=== PATIENT | female | born 1945 | race Caucasian/White ===

== ENCOUNTER → 2020-09-18 10:28 | Outpatient (CLI) | payer MEDICARE, SELFPAY ==
[2020-09-18 10:55] LABS: Basophils % 0.7 % (0.1-2.0); Eosinophils # 0.3 K/mm3 (0.0-0.4); Eosinophils % 5.5 % (0.1-12.0); Hemoglobin 13.2 g/dL (12.2-16.2); Lymphocytes # 1.7 K/mm3 (0.7-4.5); Lymphocytes % 28.9 % (10-50); Mean Corpuscular Hemoglobin 30.7 pg (27.0-31.2); Mean Corpuscular Volume 92.9 fl (81-99); Mean Platelet Volume 8.1 fl (7.4-10.4); Monocytes # 0.4 K/mm3 (0.1-1.0); Neutrophils # 3.5 K/mm3 (1.8-7.8); Neutrophils % 58.9 % (37.0-80.0); Platelet Count 191 K/mm3 (142-424); Red Blood Count 4.31 M/mm3 (4.20-5.40); Red Cell Distribution Width 14.2 % (11.5-17.5)
[2020-09-18 11:20] LABS: Chloride 106 mmol/L (98-107); Potassium 4.5 mmoL/L (3.5-5.1); Sodium 143 mmol/L (136-145)
[2020-09-18 11:22] LABS: Alanine Aminotransferase 27 U/L (12-78); Albumin Level 4.4 g/dl (3.5-5.0); Albumin/Globulin Ratio 1.5 (1.1-1.8); Alkaline Phosphatase 97 U/L (38-126); Anion Gap 10.5 mEq/L (5-15); Aspartate Amino Transferase 41 U/L (14-36); Bilirubin,Total 1.1 mg/dl (0.2-1.3); Carbon Dioxide 31 mmol/L (22.0-30.0); Total Protein,Serum 7.4 g/dl (6.3-8.2)
[2020-09-18 11:23] LABS: Calcium 9.4 mg/dl (8.4-10.2); Chol/HDL Ratio 3.8 (1-3.5); Cholesterol 165 mg/dl (140-200); Glucose 100 mg/dl (74-100); HDL Cholesterol 44 mg/dl (40-60); Triglycerides 231 mg/dl (30-150); VLDL Cholesterol 46 mg/dL (0-40)
[2020-09-18 11:27] LABS: Blood Urea Nitrogen 12 mg/dl (7-17); Estimated Glomerular Filt Rate 70 ml/min (>60); GFR (African American) 84 ML/MIN (>60)
== END ==
PROVIDERS: Visit Provider Internal Medicine
DX: I10 Essential (primary) hypertension (principal); E78.5 Hyperlipidemia, unspecified; M17.0 Bilateral primary osteoarthritis of knee
CPT/HCPCS: 36415; 80053; 80061; 85025

== ENCOUNTER → 2020-12-19 13:41 | Outpatient (CLI) | payer MEDICARE, SELFPAY ==
[2020-12-19 15:10] LABS: Bilirubin,Unconjugated 0.3 mg/dL (0.0-1.1)
[2020-12-19 15:11] LABS: Alanine Aminotransferase 20 U/L (12-78); Albumin Level 4.2 g/dl (3.5-5.0); Alkaline Phosphatase 88 U/L (38-126); Aspartate Amino Transferase 34 U/L (14-36); Bilirubin,Direct 0.6 mg/dl (0.0-0.4); Bilirubin,Indirect 0.3 mg/dL (0.0-0.9); Bilirubin,Total 0.9 mg/dl (0.2-1.3); Total Protein,Serum 7.1 g/dl (6.3-8.2)
== END ==
PROVIDERS: Visit Provider Internal Medicine
DX: I10 Essential (primary) hypertension (principal); D50.9 Iron deficiency anemia, unspecified; E78.5 Hyperlipidemia, unspecified; M17.0 Bilateral primary osteoarthritis of knee
CPT/HCPCS: 80076

== ENCOUNTER → 2021-05-14 10:48 | Outpatient (CLI) | payer MEDICARE, SELFPAY ==
[2021-05-14 11:30] LABS: Basophils % 0.8 % (0.1-2.0); Eosinophils # 0.2 K/mm3 (0.0-0.4); Eosinophils % 3.8 % (0.1-12.0); Hematocrit 40.4 % (37.0-47.0); Hemoglobin 13.5 g/dL (12.2-16.2); Lymphocytes # 1.8 K/mm3 (0.7-4.5); Lymphocytes % 31.7 % (10-50); Mean Corpuscular HGB Conc 33.5 g/dL (31.8-35.4); Mean Corpuscular Hemoglobin 31.3 pg (27.0-31.2); Mean Corpuscular Volume 93.2 fl (81-99); Mean Platelet Volume 8.9 fl (7.4-10.4); Monocytes # 0.3 K/mm3 (0.1-1.0); Monocytes % 5.8 % (1.7-9.3); Neutrophils # 3.3 K/mm3 (1.8-7.8); Neutrophils % 57.8 % (37.0-80.0); Platelet Count 197 K/mm3 (142-424); Red Blood Count 4.33 M/mm3 (4.20-5.40); Red Cell Distribution Width 14.4 % (11.5-17.5); White Blood Count 5.8 K/mm3 (4.8-10.8)
[2021-05-14 12:23] LABS: Alanine Aminotransferase 24 U/L (12-78); Albumin Level 4.1 g/dl (3.5-5.0); Albumin/Globulin Ratio 1.5 (1.1-1.8); Alkaline Phosphatase 83 U/L (38-126); Aspartate Amino Transferase 36 U/L (14-36); Bilirubin,Total 1.1 mg/dl (0.2-1.3); Blood Urea Nitrogen 16 mg/dl (7-17); Carbon Dioxide 27 mmol/L (22.0-30.0); Chloride 108 mmol/L (98-107); Chol/HDL Ratio 3.9 (1-3.5); Cholesterol 174 mg/dl (140-200); Estimated Glomerular Filt Rate 81 ml/min (>60); GFR (African American) 98 ML/MIN (>60); Globulin 2.7 g/dL (1.3-3.2); Glucose 96 mg/dl (74-100); HDL Cholesterol 45 mg/dl (40-60); Sodium 141 mmol/L (136-145); Total Protein,Serum 6.8 g/dl (6.3-8.2); Triglycerides 173 mg/dl (30-150); VLDL Cholesterol 35 mg/dL (0-40)
== END ==
PROVIDERS: Visit Provider Internal Medicine
DX: I10 Essential (primary) hypertension (principal); E78.5 Hyperlipidemia, unspecified; D50.9 Iron deficiency anemia, unspecified
CPT/HCPCS: 36415; 80053; 80061; 85025

== ENCOUNTER → 2022-01-21 15:50 | Outpatient (CLI) | payer MEDICARE, SELFPAY ==
--- NOTE | 2022-01-21 15:57 | XR_ITS ---
FINAL REPORT CLINICAL HISTORY: FALL Patient fell this morning. Pain in mid-section of left lower leg. FINDINGS: Right tibia fibula Two views were obtained. There is no acute fracture or dislocation. There are post arthroplasty changes of the knee. No soft tissue abnormality is identified. IMPRESSION: No acute process. Reviewed, Interpreted and Dictated by Efrain Overton MD Transcribed by Lilliana Yee Authenticated and [facility]
--- NOTE | 2022-01-21 15:57 | XR_ITS ---
FINAL REPORT CLINICAL HISTORY: FALL Patient fell this morning. FINDINGS: Left ankle Three views were obtained. There is no acute fracture or dislocation. The joint spaces appear normal. No soft tissue abnormality is identified. IMPRESSION: No acute process. Reviewed, Interpreted and Dictated by Efrain Overton MD Transcribed by Lilliana Yee Authenticated and [facility]
== END ==
PROVIDERS: PCP Internal Medicine; Visit Provider Internal Medicine
DX: M79.662 Pain in left lower leg (principal); M25.572 Pain in left ankle and joints of left foot; W19.XXXA Unspecified fall, initial encounter
CPT/HCPCS: 73590; 73610

== ENCOUNTER → 2022-09-29 11:30 | Outpatient (CLI) | payer MEDICARE, SELFPAY ==
[2022-09-29 12:05] LABS: Basophils % 0.4 % (0.1-2.0); Eosinophils # 0.3 K/mm3 (0.0-0.4); Eosinophils % 4.9 % (0.1-12.0); Hematocrit 40.6 % (37.0-47.0); Hemoglobin 13.5 g/dL (12.2-16.2); Lymphocytes # 2.2 K/mm3 (0.7-4.5); Lymphocytes % 36.9 % (10-50); Mean Corpuscular HGB Conc 33.1 g/dL (31.8-35.4); Mean Corpuscular Hemoglobin 30.6 pg (27.0-31.2); Mean Corpuscular Volume 92.3 fl (81-99); Mean Platelet Volume 8.8 fl (7.4-10.4); Monocytes # 0.4 K/mm3 (0.1-1.0); Monocytes % 5.8 % (1.7-9.3); Neutrophils # 3.2 K/mm3 (1.8-7.8); Neutrophils % 52.1 % (37.0-80.0); Platelet Count 201 K/mm3 (142-424); Red Blood Count 4.41 M/mm3 (4.20-5.40); White Blood Count 6.1 K/mm3 (4.8-10.8)
[2022-09-29 12:22] LABS: Alanine Aminotransferase 23 U/L (12-78); Albumin Level 4.3 g/dl (3.5-5.0); Albumin/Globulin Ratio 1.4 (1.1-1.8); Alkaline Phosphatase 92 U/L (38-126); Anion Gap 13.3 mEq/L (5-15); Aspartate Amino Transferase 32 U/L (14-36); Bilirubin,Total 0.9 mg/dl (0.2-1.3); Blood Urea Nitrogen 14 mg/dl (7-17); Calcium 9.2 mg/dl (8.4-10.2); Carbon Dioxide 27 mmol/L (22.0-30.0); Chloride 107 mmol/L (98-107); Chol/HDL Ratio 3.6 (1-3.5); Cholesterol 158 mg/dl (140-200); Estimated Glomerular Filt Rate 81 ml/min (>60); GFR (African American) 98 ML/MIN (>60); Glucose 96 mg/dl (74-100); HDL Cholesterol 44 mg/dl (40-60); Potassium 4.3 mmoL/L (3.5-5.1); Sodium 143 mmol/L (136-145); Total Protein,Serum 7.3 g/dl (6.3-8.2); Triglycerides 164 mg/dl (30-150); VLDL Cholesterol 33 mg/dL (0-40)
[2022-09-29 12:33] LABS: Direct LDL Cholesterol 76.72 mg/dL (100-129)
== END ==
PROVIDERS: PCP Internal Medicine; Visit Provider Internal Medicine
DX: I10 Essential (primary) hypertension (principal); D50.9 Iron deficiency anemia, unspecified; M17.0 Bilateral primary osteoarthritis of knee
CPT/HCPCS: 36415; 80053; 80061; 85025

== ENCOUNTER 2023-03-31 09:51 | Outpatient (CLI) | payer MEDICARE, SELFPAY ==
[2023-03-31 11:15] LABS: Alanine Aminotransferase 24 U/L (12-78); Albumin Level 3.9 g/dl (3.5-5.0); Albumin/Globulin Ratio 1.6 (1.1-1.8); Alkaline Phosphatase 77 U/L (38-126); Aspartate Amino Transferase 34 U/L (14-36); Bilirubin,Total 0.8 mg/dl (0.2-1.3); Blood Urea Nitrogen 15 mg/dl (7-17); Calcium 8.8 mg/dl (8.4-10.2); Carbon Dioxide 28 mmol/L (22.0-30.0); Chloride 108 mmol/L (98-107); Chol/HDL Ratio 4.2 (1-3.5); Cholesterol 164 mg/dl (140-200); Estimated Glomerular Filt Rate 69 ml/min (>60); GFR (African American) 84 ML/MIN (>60); Globulin 2.5 g/dL (1.3-3.2); Glucose 97 mg/dl (74-100); HDL Cholesterol 39 mg/dl (40-60); Sodium 141 mmol/L (136-145); Total Protein,Serum 6.4 g/dl (6.3-8.2); Triglycerides 202 mg/dl (30-150); VLDL Cholesterol 40 mg/dL (0-40)
== END 2023-03-31 23:59 ==
LOC: LAB 09:52
PROVIDERS: PCP Internal Medicine; Visit Provider Internal Medicine
DX: I10 Essential (primary) hypertension (principal); E78.5 Hyperlipidemia, unspecified; M15.0 Primary generalized (osteo)arthritis
CPT/HCPCS: 36415; 80053; 80061

== ENCOUNTER 2023-09-01 17:46 | Emergency (ER) | payer MEDICARE, SELFPAY ==
[2023-09-01] VITALS (26 sets, daily range): BP systolic 126–181; BP diastolic 59–91; PULSE 65–113; RESP 9–22; TEMP 36.6–36.7; O2SAT 95–99; BMI 34.5
--- NOTE | 2023-09-01 17:56 | HMH.EDGENADL ---
Discharge Plan Disposition Patient Disposition: Home, Self-Care Condition: Good Prescriptions Prescriptions: New oxycodone 5 mg tablet 5 mg PO Q8H PRN (Reason: pain (scale score 7-10)) Qty: 6 0RF Referrals Follow up/Referrals: Oli Pereira MD [Primary Care Provider] - See instructions Azam Manley DO [Staff Physician] - See instructions (Left humerus fracture, shoulder dislocation status post reduction) Activity Restrictions/Add. Instructions Additional Instructions/Restrictions: Please call in the morning to make your appointment with Dr. Manley. Return to ER for any worsening signs or symptoms as needed. Please take Tylenol and ibuprofen every 6 hours as needed with food and if your symptoms are still severe and then take the oxycodone as as prescribed. Clinical Impressions Clinical Impression: Dislocation of shoulder region Qualifiers: Encounter type: initial encounter Laterality: left Qualified Code(s): S43.005A - Unspecified dislocation of left shoulder joint, initial encounter Discharge ED Provider: Pedrito Montes De Oca General Adult HPI <TOR Sanchez - Last Filed: 09/01/23 21:12> General Chief complaint: Extremity Injury, Upper Stated complaint: AO 09-01-23 fell ,left shoulder hurting Time Seen by Provider: 09/01/23 17:50 History of Present Illness HPI narrative: Patient presents for evaluation of the left upper extremity. Patient tripped over a garden hose fell landing on her left shoulder. She has been unable to move it since. She reports no numbness or tingling in her hand no absence of sensation no chest pain no fever no chills hemoptysis hematochezia melena nausea vomiting diarrhea loss of consciousness head injury or any other injury or complaint Related Data Previous Rx's Medication Instructions Recorded oxycodone 5 mg tablet 5 mg PO Q8H PRN pain (scale score 09/01/23 7-10) #6 tabs Allergies Allergy/AdvReac Type Severity Reaction Status Date / Time No Known Allergies Allergy Unverified 02/10/17 14:36 PFSH <TOR Sanchez - Last Filed: 09/01/23 21:12> PFS Disclaimer: The information contained in this section may have been updated after the patient was seen, as this information can be updated by other users. Social History (Updated 09/01/23 @ 21:12 by TOR Sanchez) Smoking Status: Never smoker alcohol intake: never current occupational status: retired Travel in the last 8 weeks: None <TOR Sanchez - Last Filed: 09/01/23 21:12> ROS Obtained: Yes Systems reviewed as appropriate & no additional complaints except as documented Physical Exam <TOR Sanchez - Last Filed: 09/01/23 21:12> General General appearance: alert and in no apparent distress Head Head exam: atraumatic Eye Eye exam: Present normal appearance and EOMI ENT ENT exam: Present normal exam and normal oropharynx Neck Neck exam: Present normal inspection, full ROM and lymphadenopathy; Absent tenderness Chest Chest inspection: Present normal inspection and symmetric chest wall rise; Absent tenderness Respiratory Respiratory exam: Present normal lung sounds bilaterally Cardiovascular Cardiovascular exam: Present regular rate and normal rhythm Expanded Upper Extremity Exam Left: Shoulder exam: Present deformity and dislocation; Absent normal inspection or full ROM Back Exam Back exam: Present normal inspection and full ROM; Absent tenderness Neurological Exam Neurological exam: Present alert and oriented X3 Psychiatric Psychiatric exam: Present normal affect and normal mood Skin Skin exam: Present warm, dry and normal color Medical Decision Making <TOR Sanchez - Last Filed: 09/01/23 21:12> Adolfo Inquiry Pt receiving controlled substance: No Vital Signs: 09/01/23 17:48 09/01/23 20:17 09/01/23 20:56 Temperature 97.8 F 98 F 98.0 F Temperature Source Oral Oral Oral Pulse Rate [Right Radial] 66 98 H 84 Respiratory Rate 20 11 L 18 Blood Pressure [Right Arm] 126/59 L 180/85 H 133/75 Blood Pressure Mean [Right Arm] 81 116 94 02 Sat by Pulse Oximetry 95 99 98 Oxygen Delivery Method Room Air Nasal Cannula Nasal Cannula Oxygen Flow Rate (LPM) 6 2 09/01/23 21:06 Temperature 98 F Temperature Source Oral Pulse Rate [Right Radial] 104 H Respiratory Rate 22 Blood Pressure [Right Arm] 160/73 H Blood Pressure Mean [Right Arm] 102 02 Sat by Pulse Oximetry 97 Oxygen Delivery Method Nasal Cannula Oxygen Flow Rate (LPM) 2 Lab Data Lab results reviewed: Yes I reviewed the patient's lab results. Lab Results 09/01/23 18:20: WBC 6.2, RBC 4.00 L, Hgb 12.9, Hct 37.6, MCV 93.8, MCH 32.3 H, MCHC 34.4, RDW 14.6, Plt Count 178, MPV 8.6, Neut % (Auto) 53.9, Lymph % (Auto) 38.2, [place] % (Auto) 5.9, Eos % (Auto) 1.8, Baso % (Auto) 0.2, Neut # (Auto) 3.3, Lymph # (Auto) 2.4, [place] # (Auto) 0.4, Eos # (Auto) 0.1, Baso # (Auto) 0.0, Sodium 142, Potassium 3.2 L, Chloride 110 H, Carbon Dioxide 23, Anion Gap 12.2, BUN 19 H, Creatinine 0.80, Estimated Creat Clear 64, Estimated GFR 69, Est GFR ( Amer) 84, Glucose 111 H, Calcium 9.1 09/01/23 18:20 09/01/23 18:20 Orders (Tests/Meds): ED MEDICATIONS Discontinued Medications Generic Name Dose Route Start Last Admin Trade Name Freq PRN Reason Stop Dose Admin Fentanyl Citrate 50 mcg 09/01/23 19:59 09/01/23 21:20 Fentanyl 250mcg/5ml Vial IV 09/01/23 20:00 Not Given ONCE ONE Fentanyl Citrate 50 mcg 09/01/23 20:52 09/01/23 20:10 Fentanyl 100mcg/2ml Vial IV 09/01/23 20:53 50 mcg ONCE ONE Administration Ketamine HCl 150 mg 09/01/23 20:07 09/01/23 20:53 Ketamine 50mg/1ml Syringe IV 09/01/23 20:08 100 mg ONCE ONE Administration Morphine Sulfate 4 mg 09/01/23 18:26 09/01/23 18:31 Morphine 4mg/Ml Syringe IV 09/01/23 18:27 4 mg ONCE ONE Administration Ondansetron HCl 4 mg 09/01/23 18:26 09/01/23 18:31 Ondansetron 4mg/2ml Vial IV 09/01/23 18:27 4 mg ONCE ONE Administration Potassium Chloride 40 meq 09/01/23 19:40 09/01/23 19:45 Potassium Chloride 20meq Tab PO 09/01/23 19:41 40 meq ONCE ONE Administration Propofol 100 mg 09/01/23 20:08 09/01/23 20:54 Propofol 10mg/Ml 20ml Vial IV 09/01/23 20:09 30 mg ONCE ONE Administration ORDERS Category Date Time Status Forearm XR left 2 views [XR forearm LT 2V] Stat Exams 09/01/23 20:26 Completed Humerus XR left [XR humerus LT] Stat Exams 09/01/23 19:41 Completed XR shoulder LT 1V Stat Exams 09/01/23 19:41 Taken XR shoulder LT min 2V Stat Exams 09/01/23 17:59 Completed BMP [Basic Metabolic Panel] Stat Lab 09/01/23 18:20 Completed CBC w/Auto Diff [Complete Blood Count Auto Diff] Stat Lab 09/01/23 18:20 Completed Medical Decision Narrative: In summary patient is a 78-year-old female who presents to the emergency department for evaluation of left shoulder injury. Patient is hemodynamically stable upon arrival, febrile. Zickel exam is remarkable for obvious dislocation of the left shoulder. Patient is neurovascular intact distally. She has positive radial and ulnar pulses. No palpable bony deformity.. Differential diagnosis includes dislocation versus fracture dislocation versus ligamentous injury versus vascular compromise etc. Initial workup will be conducted with plain film x-ray hematologic labs EKG. Initial interventions include morphine and Zofran. Initial workup reviewed by me my informal interpretation of her plain film x-ray shows a dislocation of the shoulder but also a what appears to be a lucency through the surgical neck that was confirmed by radiology.. Upon repeat evaluation Dr. Montes De Oca and I under conscious sedation were able to reduce the shoulder. Given this patient is returned to her baseline of normal functioning after conscious sedation and is appropriate for discharge at this time <Pedrito Montes De Oca MD - Last Filed: 09/01/23 21:31> Vital Signs: 09/01/23 17:48 09/01/23 20:17 09/01/23 20:56 Temperature 97.8 F 98 F 98.0 F Temperature Source Oral Oral Oral Pulse Rate [Right Radial] 66 98 H 84 Respiratory Rate 20 11 L 18 Blood Pressure [Right Arm] 126/59 L 180/85 H 133/75 Blood Pressure Mean [Right Arm] 81 116 94 02 Sat by Pulse Oximetry 95 99 98 Oxygen Delivery Method Room Air Nasal Cannula Nasal Cannula Oxygen Flow Rate (LPM) 6 2 09/01/23 21:06 Temperature 98 F Temperature Source Oral Pulse Rate [Right Radial] 104 H Respiratory Rate 22 Blood Pressure [Right Arm] 160/73 H Blood Pressure Mean [Right Arm] 102 02 Sat by Pulse Oximetry 97 Oxygen Delivery Method Nasal Cannula Oxygen Flow Rate (LPM) 2 Lab Data Lab Results 09/01/23 18:20: WBC 6.2, RBC 4.00 L, Hgb 12.9, Hct 37.6, MCV 93.8, MCH 32.3 H, MCHC 34.4, RDW 14.6, Plt Count 178, MPV 8.6, Neut % (Auto) 53.9, Lymph % (Auto) 38.2, [place] % (Auto) 5.9, Eos % (Auto) 1.8, Baso % (Auto) 0.2, Neut # (Auto) 3.3, Lymph # (Auto) 2.4, [place] # (Auto) 0.4, Eos # (Auto) 0.1, Baso # (Auto) 0.0, Sodium 142, Potassium 3.2 L, Chloride 110 H, Carbon Dioxide 23, Anion Gap 12.2, BUN 19 H, Creatinine 0.80, Estimated Creat Clear 64, Estimated GFR 69, Est GFR ( Amer) 84, Glucose 111 H, Calcium 9.1 Orders (Tests/Meds): ED MEDICATIONS Discontinued Medications Generic Name Dose Route Start Last Admin Trade Name Yuliana PRN Reason Stop Dose Admin Fentanyl Citrate 50 mcg 09/01/23 19:59 09/01/23 21:20 Fentanyl 250mcg/5ml Vial IV 09/01/23 20:00 Not Given ONCE ONE Fentanyl Citrate 50 mcg 09/01/23 20:52 09/01/23 20:10 Fentanyl 100mcg/2ml Vial IV 09/01/23 20:53 50 mcg ONCE ONE Administration Ketamine HCl 150 mg 09/01/23 20:07 09/01/23 20:53 Ketamine 50mg/1ml Syringe IV 09/01/23 20:08 100 mg ONCE ONE Administration Morphine Sulfate 4 mg 09/01/23 18:26 09/01/23 18:31 Morphine 4mg/Ml Syringe IV 09/01/23 18:27 4 mg ONCE ONE Administration Ondansetron HCl 4 mg 09/01/23 18:26 09/01/23 18:31 Ondansetron 4mg/2ml Vial IV 09/01/23 18:27 4 mg ONCE ONE Administration Potassium Chloride 40 meq 09/01/23 19:40 09/01/23 19:45 Potassium Chloride 20meq Tab PO 09/01/23 19:41 40 meq ONCE ONE Administration Propofol 100 mg 09/01/23 20:08 09/01/23 20:54 Propofol 10mg/Ml 20ml Vial IV 09/01/23 20:09 30 mg ONCE ONE Administration ORDERS Category Date Time Status Forearm XR left 2 views [XR forearm LT 2V] Stat Exams 09/01/23 20:26 Completed Humerus XR left [XR humerus LT] Stat Exams 09/01/23 19:41 Completed XR shoulder LT 1V Stat Exams 09/01/23 19:41 Taken XR shoulder LT min 2V Stat Exams 09/01/23 17:59 Completed BMP [Basic Metabolic Panel] Stat Lab 09/01/23 18:20 Completed CBC w/Auto Diff [Complete Blood Count Auto Diff] Stat Lab 09/01/23 18:20 Completed ECG Data Tracing #1: Independently interpreted by me rate of 75, rhythm is regular, axis is normal, no ST elevation in anatomical contiguous leads, QTc 420. Medical Decision Narrative: In summary patient is a 78-year-old female who presents to the emergency department for evaluation of left shoulder injury. Patient is hemodynamically stable upon arrival, febrile. Zickel exam is remarkable for obvious dislocation of the left shoulder. Patient is neurovascular intact distally. She has positive radial and ulnar pulses. No palpable bony deformity.. Differential diagnosis includes dislocation versus fracture dislocation versus ligamentous injury versus vascular compromise etc. Initial workup will be conducted with plain film x-ray hematologic labs EKG. Initial interventions include morphine and Zofran. Initial workup reviewed by me my informal interpretation of her plain film x-ray shows a dislocation of the shoulder but also a what appears to be a lucency through the surgical neck that was confirmed by radiology.. Upon repeat evaluation Dr. Montes De Oca and I under conscious sedation were able to reduce the shoulder. Given this patient is returned to her baseline of normal functioning after conscious sedation and is appropriate for discharge at this time. I was consulted by the ELDA, and we discussed the complexity of the problems being addressed. I approved the treatment and management plan for this patient's care in the emergency department, thus performing a substantive portion of the medical decision making. Procedure: Procedure performed was left shoulder dislocation reduction, procedure performed by Pedrito Montes De Oca and Conor Woods. Using axial traction with countertraction assisted by ketamine and propofol (please see procedural sedation note) after 3 attempts successful reduction was achieved. Patient tolerated procedure well. There were no immediate complications. Upon repeat evaluation patient had some pain will be given oral oxycodone. Fortunately repeat x-rays have no concern for suspicious fracture of surgical neck and have successful reduction. Patient was watched for 30 minutes and then was discharged stable condition with prescription for oxycodone will follow-up with Dr. Manley. Pedrito Montes De Oca MD Procedures <Pedrito Montes De Oca MD - Last Filed: 09/01/23 21:31> Procedural Sedation A heart and lung assessment was performed on this patient at: 20:08 Mallampati Score:: Class II ASA Class: II Preparation: color television console monitor applied, pulse oximeter, capnometry used, supplemental O2 applied, suction/airway equipment at bedside and IV secured Ketamine: IV Ketamine dose (mg): 100 IV Propofol dose (mg): 30 Patient Tolerated Procedure: well Complications: Respiratory Depression-Repositioning Required Interventions: airway repositioned Additional Comments: Start time 2019, stop time 2027 Critical Care <TOR Sanchez - Last Filed: 09/01/23 21:12> Critical Care Time Critical Care Time: No
--- NOTE | 2023-09-01 17:59 | XR_ITS ---
PROCEDURE INFORMATION: Exam: XR Left Shoulder Exam date and time: 09/01/2023 6:18 PM Age: 78 years old Clinical indication: Injury or trauma; Fall; Other: Pain; Additional info: Fall shoulder pain TECHNIQUE: Imaging protocol: Radiologic exam of the left shoulder. Views: 2 or more views. COMPARISON: No relevant prior studies available. FINDINGS: Bones/joints: Anterior dislocation of the humeral head with respect to the bony glenoid. Findings suspicious for fracture of the surgical neck. Soft tissues: Normal. IMPRESSION: 1. Anterior dislocation of the humeral head with respect to the bony glenoid. 2. Findings suspicious for fracture of the surgical neck. 3. Recommend follow-up with computerized tomography.
[2023-09-01] MEDS: MORPHINE 4MG/ML SYRINGE 4 MG IV (18:31)
[2023-09-01] MEDS: ONDANSETRON 4MG/2ML VIAL 4 MG IV (18:31)
[2023-09-01 18:50] LABS: Chloride 110 mmol/L (98-107)
[2023-09-01 18:51] LABS: Potassium 3.2 mmoL/L (3.5-5.1); Sodium 142 mmol/L (136-145)
[2023-09-01 18:52] LABS: Basophils % 0.2 % (0.1-2.0); Eosinophils # 0.1 K/mm3 (0.0-0.4); Eosinophils % 1.8 % (0.1-12.0); Hematocrit 37.6 % (37.0-47.0); Hemoglobin 12.9 g/dL (12.2-16.2); Lymphocytes # 2.4 K/mm3 (0.7-4.5); Lymphocytes % 38.2 % (10-50); Mean Corpuscular HGB Conc 34.4 g/dL (31.8-35.4); Mean Corpuscular Hemoglobin 32.3 pg (27.0-31.2); Mean Corpuscular Volume 93.8 fl (81-99); Mean Platelet Volume 8.6 fl (7.4-10.4); Monocytes # 0.4 K/mm3 (0.1-1.0); Monocytes % 5.9 % (1.7-9.3); Neutrophils # 3.3 K/mm3 (1.8-7.8); Neutrophils % 53.9 % (37.0-80.0); Platelet Count 178 K/mm3 (142-424); Red Cell Distribution Width 14.6 % (11.5-17.5); White Blood Count 6.2 K/mm3 (4.8-10.8)
[2023-09-01 18:53] LABS: Blood Urea Nitrogen 19 mg/dl (7-17); Creatinine Clearance Estimated 64 mL/min (50-200); Estimated Glomerular Filt Rate 69 ml/min (>60); GFR (African American) 84 ML/MIN (>60)
[2023-09-01 18:54] LABS: Anion Gap 12.2 mEq/L (5-15); Calcium 9.1 mg/dl (8.4-10.2); Carbon Dioxide 23 mmol/L (22.0-30.0); Glucose 111 mg/dl (74-100)
--- NOTE | 2023-09-01 18:59 | ECG_ITS ---
APPROVED REPORT Exam: Resting ECG HR:75 bpm ECG Measurements Heart Rate [address] 173 P 67 QRSd 85 QRS 29 QT 391 T 17 QTc 420 Conclusion SINUS RHYTHM WITH OCCASIONAL ECTOPIC PREMATURE COMPLEXES LOW QRS VOLTAGE IN PRECORDIAL LEADS [QRS DEFLECTION < 1.0 mV IN CHEST LEADS] NONSPECIFIC T-WAVE ABNORMALITY BORDERLINE ECG Isolated T wave inversion in lead III and abnormal ST/T wave in aVF, does not meet criteria, no reciprocal changes, no STEMI Electronically signed by : NAVEEN PECK, 09/02/2023 08:02:34
--- NOTE | 2023-09-01 19:41 | XR_ITS ---
PROCEDURE INFORMATION: Exam: XR Left Humerus Exam date and time: 09/01/2023 8:13 PM Age: 78 years old Clinical indication: Injury or trauma; Fall; Other: Post reduction TECHNIQUE: Imaging protocol: Radiologic exam of the left humerus. Views: 2 or more views. COMPARISON: CR XR SHOULDER LT MIN 2V 09/01/2023 6:18 PM FINDINGS: Bones/joints: Normal. Soft tissues: Normal. IMPRESSION: No acute findings.
[2023-09-01] MEDS: POTASSIUM CHLORIDE 20MEQ TAB 40 MEQ PO (19:45)
--- NOTE | 2023-09-01 20:01 | PC.NURSE ---
Dr. Manley pageashanti
[2023-09-01] MEDS: FENTANYL 100MCG/2ML VIAL 50 MCG IV (20:10)
--- NOTE | 2023-09-01 20:26 | XR_ITS ---
PROCEDURE INFORMATION: Exam: XR Left Forearm Exam date and time: 09/01/2023 8:23 PM Age: 78 years old Clinical indication: Injury or trauma; Fall TECHNIQUE: Imaging protocol: Radiologic exam of the left forearm. Views: 2 views. COMPARISON: No relevant prior studies available. FINDINGS: Bones/joints: Normal. Soft tissues: Normal. IMPRESSION: No acute findings.
[2023-09-01] MEDS: KETAMINE 50MG/1ML SYRINGE 150 MG IV (20:53)
[2023-09-01] MEDS: PROPOFOL 10MG/ML 20ML VIAL 100 MG IV (20:54)
--- NOTE | 2023-09-01 21:08 | PC.NURSE ---
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
[2023-09-01] MEDS: OXYCODONE 5MG IMMEDIATE RELEASE TABLET 5 MG PO (21:37)
== END 2023-09-01 22:25 | disposition home or self-care (01) ==
PROVIDERS: Physician Assistant; Emergency Provider Emergency Medicine; PCP Internal Medicine
DX: S43.005A Unspecified dislocation of left shoulder joint, initial encounter (principal); M25.512 Pain in left shoulder; E87.6 Hypokalemia; W01.10XA Fall on same level from slipping, tripping and stumbling with subsequent striking against unspecified object, initial encounter
CPT/HCPCS: 23650; 99152; 73020; 73030; 73060; 73090; 80048; 85025; 93005; 96374; 96375; 96376; 99285; J2270; J2405; J3010

== ENCOUNTER 2023-10-06 14:50 | Outpatient (CLI) | payer MEDICARE, SELFPAY ==
[2023-10-06 13:24] LABS: Basophils % 0.7 % (0.1-2.0); Eosinophils # 0.3 K/mm3 (0.0-0.4); Eosinophils % 4.1 % (0.1-12.0); Hematocrit 43.3 % (37.0-47.0); Hemoglobin 14.1 g/dL (12.2-16.2); Lymphocytes # 1.8 K/mm3 (0.7-4.5); Lymphocytes % 29.1 % (10-50); Mean Corpuscular HGB Conc 32.5 g/dL (31.8-35.4); Mean Corpuscular Hemoglobin 31.3 pg (27.0-31.2); Mean Corpuscular Volume 96.4 fl (81-99); Monocytes # 0.5 K/mm3 (0.1-1.0); Monocytes % 8.4 % (1.7-9.3); Neutrophils # 3.6 K/mm3 (1.8-7.8); Neutrophils % 57.6 % (37.0-80.0); Platelet Count 197 K/mm3 (142-424); Red Blood Count 4.49 M/mm3 (4.20-5.40); Red Cell Distribution Width 14.7 % (11.5-17.5); White Blood Count 6.2 K/mm3 (4.8-10.8)
[2023-10-06 13:58] LABS: Alanine Aminotransferase 20 U/L (12-78); Albumin Level 3.9 g/dl (3.5-5.0); Albumin/Globulin Ratio 1.3 (1.1-1.8); Alkaline Phosphatase 84 U/L (38-126); Aspartate Amino Transferase 31 U/L (14-36); Bilirubin,Total 1.1 mg/dl (0.2-1.3); Blood Urea Nitrogen 18 mg/dl (7-17); Calcium 9.2 mg/dl (8.4-10.2); Carbon Dioxide 28 mmol/L (22.0-30.0); Chloride 106 mmol/L (98-107); Chol/HDL Ratio 4.3 (1-3.5); Cholesterol 176 mg/dl (140-200); Estimated Glomerular Filt Rate 69 ml/min (>60); GFR (African American) 84 ML/MIN (>60); Glucose 85 mg/dl (74-100); HDL Cholesterol 41 mg/dl (40-60); Sodium 139 mmol/L (136-145); Total Protein,Serum 6.9 g/dl (6.3-8.2); Triglycerides 238 mg/dl (30-150); VLDL Cholesterol 48 mg/dL (0-40)
[2023-10-06 14:09] LABS: Direct LDL Cholesterol 76.84 mg/dL (100-129)
== END 2023-10-06 23:59 | disposition home or self-care (01) ==
LOC: LAB.DROPOF 14:50
PROVIDERS: PCP Internal Medicine; Visit Provider Internal Medicine
DX: I10 Essential (primary) hypertension (principal); E78.5 Hyperlipidemia, unspecified
CPT/HCPCS: 80053; 80061; 85025

== ENCOUNTER 2023-11-12 11:16 | Outpatient (CLI) | payer MEDICARE, SELFPAY ==
[2023-11-12 10:22] LABS: Reticulocyte % (Auto) 1.7 % (0.9-3.2)
[2023-11-12 11:10] LABS: Bilirubin,Direct 0.2 mg/dl (0.0-0.4); Bilirubin,Indirect 0.8 mg/dL (0.0-0.9); Bilirubin,Unconjugated 0.9 mg/dL (0.0-1.1)
== END 2023-11-12 23:59 | disposition home or self-care (01) ==
LOC: LAB.DROPOF 11:16
PROVIDERS: PCP Internal Medicine; Visit Provider Internal Medicine
DX: R17 Unspecified jaundice (principal)
CPT/HCPCS: 82247; 82248; 85044

== ENCOUNTER 2024-04-07 13:52 | Outpatient (CLI) | payer MEDICARE, SELFPAY ==
[2024-04-07 14:22] LABS: Albumin Level 4.3 g/dl (3.5-5.0); Chloride 106 mmol/L (98-107); Potassium 4.1 mmoL/L (3.5-5.1); Sodium 141 mmol/L (136-145)
[2024-04-07 14:25] LABS: Alanine Aminotransferase 26 U/L (12-78); Albumin/Globulin Ratio 1.7 (1.1-1.8); Alkaline Phosphatase 68 U/L (38-126); Anion Gap 12.1 mEq/L (5-15); Aspartate Amino Transferase 34 U/L (14-36); Bilirubin,Total 0.7 mg/dl (0.2-1.3); Blood Urea Nitrogen 17 mg/dl (7-17); Carbon Dioxide 27 mmol/L (22.0-30.0); Cholesterol 158 mg/dl (140-200); Estimated Glomerular Filt Rate 81 ml/min (>60); GFR (African American) 97 ML/MIN (>60); Globulin 2.5 g/dL (1.3-3.2); Glucose 83 mg/dl (74-100); Total Protein,Serum 6.8 g/dl (6.3-8.2); Triglycerides 179 mg/dl (30-150); VLDL Cholesterol 36 mg/dL (0-40)
[2024-04-07 14:26] LABS: Chol/HDL Ratio 3.9 (1-3.5); HDL Cholesterol 41 mg/dl (40-60)
== END 2024-04-07 23:59 | disposition home or self-care (01) ==
LOC: LAB.DROPOF 13:52
PROVIDERS: PCP Internal Medicine; Visit Provider Internal Medicine
DX: E78.5 Hyperlipidemia, unspecified (principal); I10 Essential (primary) hypertension
CPT/HCPCS: 80053; 80061

== ENCOUNTER 2025-01-23 16:35 | Outpatient (CLI) | payer MEDICARE, SELFPAY ==
[2025-01-23 16:15] LABS: Hematocrit 42.5 % (37.0-47.0); Hemoglobin 13.9 g/dL (12.2-16.2); Immature Granulocytes % 0.3 %; Mean Corpuscular HGB Conc 32.7 g/dL (31.8-35.4); Mean Corpuscular Hemoglobin 30.8 pg (27.0-31.2); Mean Corpuscular Volume 94.0 fl (81-99); Nucleated Red Blood Cells % 0 %; Platelet Count 212 K/mm3 (142-424); Red Blood Count 4.52 M/mm3 (4.20-5.40); Red Cell Distribution Width-SD 47.4 fL; White Blood Count 6.9 K/mm3 (4.8-10.8)
[2025-01-23 16:36] LABS: Albumin Level 4.3 g/dl (3.5-5.0); Chloride 105 mmol/L (98-107)
[2025-01-23 16:37] LABS: Potassium 3.6 mmoL/L (3.5-5.1); Sodium 146 mmol/L (136-145)
--- OUTSIDE RECORDS SUMMARY | 2025-01-23 16:37 | XMS_ITS | Clinical Summary ---
[facility] Address [address] [place] [address] Care Team Providers Care [employer] Rep Name Role Phone Provider, No Known Primary Care Provider [phone] Social History Tobacco Use Types Packs/Day Years Used Date Smoking Tobacco: Never Assessed Abuse Screen Answer Date Recorded Unsafe at Home or Work/School Not on file Feels Threatened by Someone? Not on file 10/2022 Does Anyone Keep You from Co ntacting Others or Doint Things Outside the Home? Not on file 12/01/2022 Physical Sign of Abuse Present Not on file 1 Housing Stability Answer Date Recorded Current Living Arrangements Not on file 10/2022 Potentially Unsafe Housing Conditions Not on paige e 12/01/2022 Family and Community Support Answer Misael e Recorded Help with Day-to-Day Activities Not on file 12/01/2022 Lonely or Isolated Not on file 12/01/2022 Employment Answer Date Recorded Do you want help finding or keeping work or a rolanda b? Not on file 12/01/2022 Disabilities Answer Date Recorded Concentrating, Remembering, or Making Decisions Difficulty Not on file 12/01/2022 Doing Errands Independently Difficulty Not on fi le 12/01/2022 Education Answer Date Recorded Help with school or training? Not on file Preferred Language Not on file 12/01/2022 Comments Unknown Sex and Gender Information Value Date Recorded Sex Assigned at Not on file Legal Sex Female 1:12 PM EDT Gender Identity Not on file Sexual Orientation Not on file Plan of Treatment Health Maintenance Due Date Last Done Comments ANNUAL PHYSICAL 1945 DXA SCAN 1945 TDAP/TD VACCINES (1 - Tdap) 02/02/1963 Pneumococcal Vaccine 50+ (1 of 1 - PCV) 02/02/1994 ZOSTER VACCINE (1 of 2) 02/02/1994 RSV Vaccine - Adults (1 - 1-dose 75+ series) 9 INFLUENZA VACCINE 09/23/2024 COVID-19 Vaccine (2023- season) 2024 Care Teams [employer] Rep Relationship Specialty Start Date End Date Provider, [place] [address] PCP - General 07/24/15
[2025-01-23 16:39] LABS: Alanine Aminotransferase 24 U/L (12-78); Albumin/Globulin Ratio 1.5 (1.1-1.8); Alkaline Phosphatase 85 U/L (38-126); Anion Gap 16.6 mEq/L (5-15); Aspartate Amino Transferase 37 U/L (14-36); Bilirubin,Total 0.9 mg/dl (0.2-1.3); Blood Urea Nitrogen 13 mg/dl (7-17); Carbon Dioxide 28 mmol/L (22.0-30.0); Cholesterol 152 mg/dl (140-200); Creatinine,Serum 0.80 mg/dl (0.52-1.04); Estimated Glomerular Filt Rate 69 ml/min (>60); GFR (African American) 84 ML/MIN (>60); Globulin 2.8 g/dL (1.3-3.2); Total Protein,Serum 7.1 g/dl (6.3-8.2); Triglycerides 178 mg/dl (30-150)
[2025-01-23 16:40] LABS: Calcium 8.9 mg/dl (8.4-10.2); Glucose 96 mg/dl (74-100); HDL Cholesterol 45 mg/dl (40-60)
== END 2025-01-23 23:59 | disposition home or self-care (01) ==
LOC: LAB.DROPOF 16:36
PROVIDERS: PCP Internal Medicine; Visit Provider Internal Medicine
DX: E78.5 Hyperlipidemia, unspecified (principal); I10 Essential (primary) hypertension; M15.0 Primary generalized (osteo)arthritis
CPT/HCPCS: 80053; 80061; 85025